=== PATIENT | female | born 1985 | race Hispanic/Latino ===

== ENCOUNTER 2020-07-27 14:19 | Outpatient (CLI) | payer OTHER ==
[2020-07-27] MEDS ORDERED: Magnevist 469MG/ML 20 ML VIAL ONE (15:21)
--- NOTE | 2020-07-27 16:32 | MRI ---
MRI BRAIN WITH AND WITHOUT CONTRAST: DATE: 07/27/2020 HISTORY: 35-year-old female. "G 33 multiple sclerosis" Diplopia, body stiffness, and immobility COMPARISON: None TECHNIQUE: Multiplanar, multisequence MRI of the brain performed pre- and post-IV injection of gadolinium based contrast agent. FINDINGS: There is a large number of tiny, mostly punctate focal intra-axial signal abnormalities (hyperintensi ties on T2 WI and FLAIR) catheter throughout the cerebral subcortical and deep white matter, in the parra radiata and centrum semiovale. These are nonspecific. They do not have the strongly characteri stic features of demyelinating plaques of multiple sclerosis: Lack of Macias's finger configuration, lack of involvement of corpus callosum, and lack of involvement of brachium pontis. Th ey could represent chronic ischemic white matter changes due to small vessel disease, much greater than expected for age 35 years (unless the patient has chronic hypertension, diabetes mellitus, or la te stage chronic kidney disease). The fourth ventricle is moderately enlarged. Foramen of Magendie and bilateral foramina of Luschka ar e also widened caliber. There is mild enlargement of the third ventricle and lateral ventricles. The ventricular enlargement is out of proportion to the generalized minimal sulcal prominence. There is no restricted diffusion, recent or remote intra-axial hemorrhage, mass effect, midline shift , extra-axial fluid collection, or abnormal intra-axial enhancement. No evidence of dural venous sinus thrombosis. IMPRESSION: 1) large number of nonspecific tiny cerebral white matter lesions. Etiology unknown. Possibilities in clude multiple sclerosis, small vessel disease, and vasculitis, although none of those are highly likely. 2) ventriculomegaly: Moderate dilation of fourth ventricle, and mild dilation of lateral and third ve ntricles, also of uncertain etiology.
== END 2020-07-27 14:20 | disposition home or self-care (01) ==
LOC: BICMRI 14:19
PROVIDERS: ATTEND Internal Medicine Rheumatology
DX: G35 Multiple sclerosis (principal); G93.89 Other specified disorders of brain
CPT/HCPCS: 70553; A9579

== ENCOUNTER 2021-09-09 09:51 | Outpatient (CLI) | payer BC | END 2021-09-09 09:52 | disposition home or self-care (01) | LOC: ULT 09:51 | PROVIDERS: ATTEND Internal Medicine Gastroenterology | DX: K21.9 Gastro-esophageal reflux disease without esophagitis (principal); R14.0 Abdominal distension (gaseous); R63.5 Abnormal weight gain; R11.0 Nausea | CPT/HCPCS: 76700 ==

== ENCOUNTER 2022-08-03 13:40 | Outpatient (CLI) | payer BC | END 2022-08-03 13:41 | disposition home or self-care (01) | LOC: SCSMRI 13:40 | PROVIDERS: ATTEND Family Medicine | DX: M54.12 Radiculopathy, cervical region (principal); G93.89 Other specified disorders of brain; G93.6 Cerebral edema | CPT/HCPCS: 72156 ==

== ENCOUNTER 2022-08-04 12:57 | Inpatient (IN) | payer BC ==
[2022-08-04] MEDS ORDERED: Ondansetron PF 4 MG/2 ML Vial ONE ×2 (14:27→17:59)
[2022-08-04] MEDS ORDERED: Morphine 4 MG/ML VIAL ONE ×2 (14:27→16:55)
[2022-08-04 15:01] LABS: #Eosinphils 0.2 thou/uL (0.0-0.7); #Lymphocytes 1.8 thou/uL (1.20-3.40); #Monocytes 0.5 thou/uL (0.11-0.59); #Neutrophils 4.8 thou/uL (1.40-6.50); %Basophils 0.5 % (0.0-1.0); %Eosinophils 2.1 % (0.0-10.0); %Lymphocytes 25.2 % (21.0-51.0); %Monocytes 6.7 % (0.0-10.0); %Neutrophils 65.5 % (42.0-75.0); Hemoglobin 13.9 g/dL (12.0-16.0); Mean Corpuscular HGB CONC 33.1 g/dL (32.0-36.0); Mean Corpuscular Volume 93.5 fl (78.0-98.0); Mean Platelet Volume 8.1 fL (7.4-10.4); Platelet Count 327 10x3/uL (130-400); RBC Distribution Width 11.6 % (11.5-14.5); Red Blood Cell (RBC) Count 4.49 mill/uL (4.20-5.40); White Blood Cell (WBC) Count 7.3 10x3/uL (4.8-10.8)
[2022-08-04 15:15] LABS: INR-International Normal Ratio 0.9; Prothrombin Time 12.8 sec (12.0-14.7)
[2022-08-04 15:19] LABS: ALT (SGPT) 16 U/L (8-55); AST (SGOT) 24 U/L (5-34); Albumin 4.9 g/dL (3.5-5.0); Alkaline Phosphatase 62 U/L (40-110); Anion Gap 15 mmol/L (10-20); BUN (Urea Nitrogen) 11 mg/dL (7.0-18.7); Bilirubin, Total 0.4 mg/dL (0.2-1.2); Calc. Creatinine Clearance 0 mL/min (70-130); Calcium 9.2 mg/dL (7.8-10.44); Carbon Dioxide 21 mmol/L (22-29); Chloride 105 mmol/L (98-107); Estimated GFR 113; Globulin 3.3 g/dL (2.4-3.5); Glucose 106 mg/dL (70-105); Potassium 4.1 mmol/L (3.5-5.1); Protein, Total 8.2 g/dL (6.0-8.3); Sodium 137 mmol/L (136-145)
[2022-08-04 15:44] LABS: SARS-CoV-2 NAA Rapid Test Not Detected (NotDetected)
[2022-08-04] MEDS ORDERED: hydrALAZINE 20 MG/ML VIAL SLOW IVP PRN (16:45)
[2022-08-04] MEDS ORDERED: HYDROcodone/Acetaminophen 10/325 mg Tablet PO PRN (16:45)
[2022-08-04] MEDS ORDERED: Acetaminophen 325 MG TAB PO PRN (16:45)
[2022-08-04] MEDS ORDERED: Promethazine HCl 25 MG/ML VIAL IM PRN (16:45)
[2022-08-04] MEDS ORDERED: Ondansetron PF 4 MG/2 ML Vial IVP PRN (16:45)
[2022-08-04] MEDS ORDERED: HYDROcodone/Acetaminophen 7.5/325 mg Tablet PO PRN (16:45)
[2022-08-04] MEDS ORDERED: Labetalol HCl 100 MG/20 ML VIAL SLOW IVP PRN ×2 (16:45→20:39)
[2022-08-04] MEDS ORDERED: Morphine 2 MG/ML VIAL SLOW IVP PRN (16:45)
[2022-08-04] MEDS ORDERED: Diazepam 10 MG/2 ML SYRINGE ONE (16:56)
[2022-08-04] MEDS ORDERED: SODIUM CHLORIDE 0.9% CATH SCH (17:15)
[2022-08-04] MEDS ORDERED: CEFAZOLIN 2 GM in Sodium Chloride 0.9% 100 ML IVPB SCH (17:15)
[2022-08-04] MEDS ORDERED: GENTAMICIN CATH SCH (17:15)
[2022-08-04] MEDS ORDERED: VANCOMYCIN HCL CATH SCH (17:15)
[2022-08-04] MEDS ORDERED: Vancomycin 1 GM VIAL ONE (17:17)
[2022-08-04] MEDS ORDERED: EPINEPHrine 1 MG/ML AMP ONE (17:17)
[2022-08-04] MEDS ORDERED: Gentamicin 80 MG/2 ML VIAL ONE (17:17)
[2022-08-04] MEDS ORDERED: Lidocaine 1% (PF) 30 ML VIAL ONE (17:17)
[2022-08-04] MEDS ORDERED: Neomycin-Polymyxin 1 ML AMP ONE (17:17)
[2022-08-04] MEDS ORDERED: Thrombin 5000 UNITS/5 ML VIAL ONE (17:17)
[2022-08-04] MEDS ORDERED: fentaNYL PF 100 MCG/2 ML SYRINGE ONE ×2 (17:36→20:34)
[2022-08-04] MEDS ORDERED: Vancomycin HCl 20 MG, Gentamicin (PEDI) 8 MG, Admixture Fee 1 EACH in Sodium Chloride 0... FS SCH (17:45)
[2022-08-04] MEDS ORDERED: CEFAZOLIN 2 GM VIAL ONE (17:51)
[2022-08-04] MEDS ORDERED: Sodium Chloride 0.9% 100 ML ONE (17:51)
[2022-08-04] MEDS ORDERED: Dexamethasone 20 MG/5 ML VIAL ONE (17:59)
[2022-08-04] MEDS ORDERED: Rocuronium Bromide 10 MG/ML (10ML VIAL) ONE (17:59)
[2022-08-04] MEDS ORDERED: PROPOFOL 200 MG/20 ML VIAL ONE (17:59)
[2022-08-04] MEDS ORDERED: PHENYLEPHRINE-NS 100 MCG/ML 10 ML SYRINGE ONE (17:59)
[2022-08-04] MEDS ORDERED: Succinylcholine Chloride 100 MG/5 ML SYRINGE FS ONE (17:59)
[2022-08-04] MEDS ORDERED: Magnevist 469MG/ML 20 ML VIAL ONE (18:07)
[2022-08-04] MEDS ORDERED: SUGAMMADEX SODIUM 200 MG/2 ML VIAL ONE (20:05)
[2022-08-04 20:47] LABS: CSF, Glucose 71 mg/dl (40-70); CSF, Protein Less than 10 mg/dL (15-40)
[2022-08-04 21:00] LABS: CSF Source CSF; Clarity Clear (Clear); Tube # EDTA
[2022-08-04] MEDS: Sodium Chloride 0.9% 1,000 ML IV SCH (21:10)
[2022-08-04] MEDS ORDERED: Electrolyte Replacement Protocol 1 EACH FS PRN (21:45)
[2022-08-04] MEDS: hydrALAZINE 20 MG/ML VIAL SLOW IVP PRN ×2 (21:46→22:24)
[2022-08-04 22:53] LABS: Color Of CSF Supernatant COLORLESS (Colorless); Tube # 3; Unspun CSF Color COLORLESS (Colorless)
[2022-08-04 23:03] VITALS: BMI 27.5
[2022-08-05] MEDS ORDERED: CEFAZOLIN 2 GM in Sodium Chloride 0.9% 100 ML IVPB SCH (02:00)
[2022-08-05] MEDS ORDERED: VANCOMYCIN 1.25 GM/250 ML BAG 1.25 GM in Premix Bag 1 BAG IVPB SCH (05:00)
[2022-08-05] MEDS ORDERED: CERTOLIZUMAB PEGOL 400 MG/2 ML SQ SCH (06:45)
[2022-08-05 08:07] LABS: Reference Lab Name LABCORP
[2022-08-05] MEDS: Sodium Chloride 0.9% 1,000 ML IV SCH (09:30)
[2022-08-05] MEDS ORDERED: CERTOLIZUMAB PEGOL 400 MG/2 ML SC SCH (12:00)
[2022-08-05 12:07] VITALS: TEMP 98
== END 2022-08-05 12:05 | disposition home or self-care (01) | DRG 31 ==
LOC: ERS 12:57 → SDC/OP 18:55 → CCU 20:54
PROVIDERS: ADMIT Neurological Surgery; ATTEND Neurological Surgery
PROC: 00160J6 Bypass Cerebral Ventricle to Peritoneal Cavity with Synthetic Substitute, Open Approach (ICD-10-PCS; principal; 2022-08-04)
DX: G91.1 Obstructive hydrocephalus (principal); G93.5 Compression of brain; G93.6 Cerebral edema; E87.20 Acidosis, unspecified; Z20.822 Contact with and (suspected) exposure to COVID-19; G43.909 Migraine, unspecified, not intractable, without status migrainosus; E78.00 Pure hypercholesterolemia, unspecified; G89.29 Other chronic pain; Z98.51 Tubal ligation status; Z82.49 Family history of ischemic heart disease and other diseases of the circulatory system; Z82.3 Family history of stroke; Z79.899 Other long term (current) drug therapy; M54.12 Radiculopathy, cervical region; G93.89 Other specified disorders of brain
CPT/HCPCS: 70450; 70553; 71045; 72156; 80053; 82945; 84157; 84443; 85025; 85610; 85730; 87070; 87205; 88112; 89051; 93005; A9579; C1713; C1750; C1788; C1889; J0171; J0360; J1100; J1580; J2001; J2270; J2272; J2405; J2704; J3360; J3370; J3490; J7050; U0002

== ENCOUNTER 2025-02-06 09:44 | Outpatient (CLI) | payer BC | END 2025-02-06 09:45 | disposition home or self-care (01) | LOC: SCSRAD 09:44 | PROVIDERS: ATTEND Family Medicine | DX: R05.3 Chronic cough (principal) | CPT/HCPCS: 71046 ==

== ENCOUNTER 2025-02-11 12:38 | Outpatient (CLI) | payer BC | END 2025-02-11 12:39 | disposition home or self-care (01) | LOC: BICMRI 12:38 | PROVIDERS: ATTEND Family Medicine | DX: Z48.811 Encounter for surgical aftercare following surgery on the nervous system (principal); Z97.8 Presence of other specified devices; I67.82 Cerebral ischemia; I73.9 Peripheral vascular disease, unspecified; J34.89 Other specified disorders of nose and nasal sinuses | CPT/HCPCS: 70551 ==